=== PATIENT | female | born 1965 | race Caucasian/White ===

== ENCOUNTER → 2016-12-19 | Outpatient (CLI) | payer OTHER ==
--- NOTE | 2016-12-30 07:50 | MM ---
Reason for exam: screening (asymptomatic). Last mammogram was performed 11 years and 9 months ago. History: Patient history of other cancer. Took hormonal contraceptives for 3 years beginning at age 18. Physical Findings: A clinical breast exam by your physician is recommended on an annual basis and results should be correlated with mammographic findings. MG Screening Mammo w CAD Bilateral CC and MLO view(s) were taken. Prior study comparison: October 11, 2015, mammogram, performed at [facility]. March 21, 2005, bilateral screening mammogram w/CAD. The breast tissue is almost entirely fat. There is no discrete abnormality. No significant changes when compared with prior studies. ASSESSMENT: Negative, BI-RAD 1 RECOMMENDATION: Routine screening mammogram of both breasts in 1 year.
== END ==
LOC: RADMAMWWP 14:11
PROVIDERS: ATTEND Family Medicine
DX: Z12.31 Encounter for screening mammogram for malignant neoplasm of breast (principal)

== ENCOUNTER 2017-07-13 08:31 | Inpatient (IN) | payer OTHER ==
[2017-07-13] MEDS ORDERED: methylPREDNISolone SOD SUCCI 125 MG/2 ML VIAL IV STA (08:54)
[2017-07-13] MEDS ORDERED: SODIUM CHLORIDE 0.9% 1,000 ML IV STA (08:54)
[2017-07-13] MEDS ORDERED: IPRATROPIUM-ALBUTEROL 3 ML NEB INHALATION STA ×2 (08:54→10:57)
[2017-07-13 09:18] LABS: Basophils # (A) 0.1 k/uL (0-0.2); Basophils % (A) 1 %; Eosinophils # (A) 0.2 k/uL (0-0.7); Eosinophils % (A) 2 %; HGB 15.3 gm/dL (11.4-16.0); Lymphocytes % (A) 21 %; MCH 30.2 pg (25.0-35.0); MCHC 33.3 g/dL (31.0-37.0); MCV 90.6 fL (80.0-100.0); Mean Platelet Volume 7.2; Monocytes # (A) 0.4 k/uL (0-1.0); Monocytes % (A) 4 %; Neutrophils % (A) 71 %; Platelet Count 327 k/uL (150-450); RBC 5.08 m/uL (3.80-5.40); RDW 13.1 % (11.5-15.5); WBC 9.9 k/uL (3.8-10.6)
--- NOTE | 2017-07-13 09:24 | XR ---
EXAMINATION TYPE: XR chest 2V DATE OF EXAM: 07/13/2017 COMPARISON: NONE HISTORY: Dyspnea. History of COPD. TECHNIQUE: Frontal and lateral views of the chest are obtained. FINDINGS: There is no focal air space opacity, pleural effusion, or pneumothorax seen. The cardiac silhouette size is within normal limits. The osseous structures are intact. Minimal multilevel dege nerative changes of the thoracic spine are noted. IMPRESSION: No acute cardiopulmonary process.
[2017-07-13 09:27] LABS: D-Dimer 0.55 mg/L FEU (<0.60)
[2017-07-13 09:30] LABS: ALT 40 U/L (9-52); AST 23 U/L (14-36); Albumin 4.3 g/dL (3.5-5.0); Alkaline Phosphatase 80 U/L (38-126); Anion Gap 11 mmol/L; Blood Urea Nitrogen 15 mg/dL (7-17); Carbon Dioxide 29 mmol/L (22-30); Chloride 104 mmol/L (98-107); Glucose 143 mg/dL (74-99); Potassium 3.6 mmol/L (3.5-5.1); Sodium 144 mmol/L (137-145); Total Bilirubin 0.5 mg/dL (0.2-1.3); Total Protein 7.3 g/dL (6.3-8.2)
[2017-07-13 09:32] LABS: Partial Thromboplastin Time 25.4 sec (22.0-30.0); Prothrombin Time 9.7 sec (9.0-12.0)
[2017-07-13 09:46] LABS: Calcium 9.9 mg/dL (8.4-10.2)
[2017-07-13] MEDS ORDERED: PROMETHAZ-COD 6.25-10 MG/5 ML 5 ML CUP PO STA (09:46)
[2017-07-13 09:48] LABS: Creatine Kinase 73 U/L (30-135)
--- NOTE | 2017-07-13 09:49 | ED ---
General Adult HPI - General Chief complaint: Shortness of Breath Stated complaint: SOB Time Seen by Provider: 07/13/17 08:40 Source: patient, RN notes reviewed, old records reviewed Mode of arrival: ambulatory Limitations: no limitations - History of Present Illness Initial comments: This patient is a 52-year-old female with a history of COPD presents emergency Department chief complaint of shortness of breath. Patient reports that she's had these symptoms for the past 3 weeks. She reports initially started to get L and followed up with her primary care provider. She was started on Augmentin for 10 days for upper respiratory infection. She was on any steroids at that time, she has been using her inhalers. Patient reports that she started to feel somewhat better after the antibiotics. She reports that the symptoms started to recur about a week ago. Patient states that she has been feeling chilled, and intermittent fevers. She denies any specific chest pain. She states that she's had no nausea or vomiting, abdominal pain. - Related Data Home Medications Medication Instructions Recorded Confirmed Albuterol Inhaler [Ventolin Hfa 2 puff INHALATION RT-BID 07/13/17 07/13/17 Inhaler] Albuterol Nebulized [Ventolin 2.5 mg INHALATION RT-Q4H 07/13/17 07/13/17 Nebulized] Calcium Carbonate [Tums] 1,000 mg PO BID 07/13/17 07/13/17 Ergocalciferol [Vitamin D2] 50,000 unit PO Q30D 07/13/17 07/13/17 Flunisolide [Aerospan] 1 puff INHALATION RT-DAILY 07/13/17 07/13/17 HYDROcodone/APAP 7.5-325MG [Coalgate 1 tab PO BID PRN 07/13/17 07/13/17 7.5-325] Hydrochlorothiazide [Hydrodiuril] 25 mg PO DAILY 07/13/17 07/13/17 Loratadine [Claritin] 10 mg PO DAILY 07/13/17 07/13/17 Montelukast [Singulair] 10 mg PO DAILY 07/13/17 07/13/17 Umeclidinium [place] [Incruse 1 puff INHALATION RT-DAILY 07/13/17 07/13/17 Ellipta] Allergies Allergy/AdvReac Type Severity Reaction Status Date / Time No Known Allergies Allergy Verified 07/13/17 08:56 Review of Systems ROS Statement: Those systems with pertinent positive or pertinent negative responses have been documented in the HPI. ROS Other: All systems not noted in ROS Statement are negative. Past Medical History Past Medical History: Asthma, COPD, Hypertension Additional Past Medical History / Comment(s): DDD History of Any Multi-Drug Resistant Organisms: None Reported Past Surgical History: No Surgical Hx Reported Past Psychological History: No Psychological Hx Reported Smoking Status: Former smoker Past Alcohol Use History: None Reported Past Drug Use History: None Reported General Exam - General Exam Comments Initial Comments: This patient is a 52-year-old female, patient is diaphoretic. Limitations: no limitations General appearance: alert, in no apparent distress Head exam: Present: atraumatic, normocephalic, normal inspection Eye exam: Present: normal appearance, PERRL, EOMI. Absent: scleral icterus, conjunctival injection, periorbital swelling ENT exam: Present: normal exam, mucous membranes moist Neck exam: Present: normal inspection. Absent: tenderness, meningismus, lymphadenopathy Respiratory exam: Present: normal lung sounds bilaterally, wheezes (Minor wheezing is noted bilaterally.). Absent: respiratory distress, rales, rhonchi, stridor Cardiovascular Exam: Present: regular rate GI/Abdominal exam: Present: soft, other (Obese abdomen.) Extremities exam: Present: normal inspection, full ROM, normal capillary refill , other. Absent: tenderness, pedal edema, joint swelling, calf tenderness Back exam: Present: normal inspection Neurological exam: Present: alert, oriented X3, CN II-XII intact Psychiatric exam: Present: normal affect Skin exam: Present: warm, dry, intact, normal color. Absent: rash Course Vital Signs 07/13/17 07/13/17 07/13/17 08:33 08:42 09:25 Temperature 98.0 F Pulse Rate 118 H 76 Respiratory 20 24 22 Rate Blood Pressure 138/83 113/79 O2 Sat by Pulse 96 94 L Oximetry 07/13/17 07/13/17 07/13/17 09:30 09:38 10:50 Temperature Pulse Rate 88 81 Respiratory Rate Blood Pressure O2 Sat by Pulse 90 L Oximetry 07/13/17 07/13/17 07/13/17 11:15 11:18 11:26 Temperature Pulse Rate 78 81 81 Respiratory 20 Rate Blood Pressure 116/54 O2 Sat by Pulse 96 Oximetry - Reevaluation(s) Reevaluation #1: 07/13/17 11:13 Patient is reevaluated after the breathing treatment, oxygen was pulled off the patient's O2 sat was 90% on room air. Patient was replaced back on oxygen. Only getting up to 94% on room air on 2 L of oxygen. She does still have some minor wheezing. We'll repeat DuoNeb. She reports that she's been using albuterol breathing treatments every 4 hours but not getting any better. EKG Findings - EKG Comments: EKG Findings:: EKG shows sinus rhythm, ventricular 83 beats were minute period. 178 ms. QRS duration 96 most seconds. QT QTC 396/465 mg seconds. No evidence of ST elevation or T-wave inversions. No evidence of facial or ventricular arrhythmias. Medical Decision Making - Medical Decision Making 52-year-old female chief complaint of increased cough and shortness of breath. Patient was given IV fluids, IV steroids, and DuoNeb treatment. Chest x-ray was reviewed and negative for any significant acute process. She continues to have some upper respiratory congestion and coughing and minor wheezing noted. Patient's labwork was reviewed and within normal limits. EKG was reviewed and normal. Patient continues to have a productive cough, and oxygen saturation dips to 90% when she is off of room air. At this time I discussed case with We'll repeat another DuoNeb treatment. At this time on the patient for COPD exacerbation. Started on IV steroids. I'll start the patient on PO Levaquin. Patient agrees to treatment plan will comply. Discussed Dr. Lawton. He discussed this with Dr. Hernandez. - Lab Data Result diagrams: 07/13/17 09:04 07/13/17 09:04 Lab Results 07/13/17 07/13/17 07/13/17 Range/Units 09:04 09:04 09:04 WBC 9.9 (3.8-10.6) k/uL RBC 5.08 (3.80-5.40) m/uL Hgb 15.3 (11.4-16.0) gm/dL Hct 46.0 (34.0-46.0) % MCV 90.6 (80.0-100.0) fL MCH 30.2 (25.0-35.0) pg MCHC 33.3 (31.0-37.0) g/dL RDW 13.1 (11.5-15.5) % Plt Count 327 (150-450) k/uL Neutrophils % 71 % Lymphocytes % 21 % Monocytes % 4 % Eosinophils % 2 % Basophils % 1 % Neutrophils # 7.0 (1.3-7.7) k/uL Lymphocytes # 2.0 (1.0-4.8) k/uL Monocytes # 0.4 (0-1.0) k/uL Eosinophils # 0.2 (0-0.7) k/uL Basophils # 0.1 (0-0.2) k/uL PT (9.0-12.0) sec INR (<1.2) APTT (22.0-30.0) sec D-Dimer (<0.60) mg/L FEU Sodium 144 (137-145) mmol/L Potassium 3.6 (3.5-5.1) mmol/L Chloride 104 (98-107) mmol/L Carbon Dioxide 29 (22-30) mmol/L Anion Gap 11 mmol/L BUN 15 (7-17) mg/dL Creatinine 0.67 (0.52-1.04) mg/dL Est GFR (MDRD) Af Amer >60 (>60 ml/min/1.73 sqM) Est GFR (MDRD) Non-Af >60 (>60 ml/min/1.73 sqM) Glucose 143 H (74-99) mg/dL Calcium 9.9 (8.4-10.2) mg/dL Total Bilirubin 0.5 (0.2-1.3) mg/dL AST 23 (14-36) U/L ALT 40 (9-52) U/L Alkaline Phosphatase 80 (38-126) U/L Total Creatine Kinase 73 (30-135) U/L CK-MB (CK-2) 0.6 (0.0-2.4) ng/mL CK-MB (CK-2) Rel Index 0.8 Troponin I <0.012 (0.000-0.034) ng/mL NT-Pro-B Natriuret Pep pg/mL Total Protein 7.3 (6.3-8.2) g/dL Albumin 4.3 (3.5-5.0) g/dL 07/13/17 07/13/17 Range/Units 09:04 09:04 WBC (3.8-10.6) k/uL RBC (3.80-5.40) m/uL Hgb (11.4-16.0) gm/dL Hct (34.0-46.0) % MCV (80.0-100.0) fL MCH (25.0-35.0) pg MCHC (31.0-37.0) g/dL RDW (11.5-15.5) % Plt Count (150-450) k/uL Neutrophils % % Lymphocytes % % Monocytes % % Eosinophils % % Basophils % % Neutrophils # (1.3-7.7) k/uL Lymphocytes # (1.0-4.8) k/uL Monocytes # (0-1.0) k/uL Eosinophils # (0-0.7) k/uL Basophils # (0-0.2) k/uL PT 9.7 (9.0-12.0) sec INR 1.0 (<1.2) APTT 25.4 (22.0-30.0) sec D-Dimer 0.55 (<0.60) mg/L FEU Sodium (137-145) mmol/L Potassium (3.5-5.1) mmol/L Chloride (98-107) mmol/L Carbon Dioxide (22-30) mmol/L Anion Gap mmol/L BUN (7-17) mg/dL Creatinine (0.52-1.04) mg/dL Est GFR (MDRD) Af Amer (>60 ml/min/1.73 sqM) Est GFR (MDRD) Non-Af (>60 ml/min/1.73 sqM) Glucose (74-99) mg/dL Calcium (8.4-10.2) mg/dL Total Bilirubin (0.2-1.3) mg/dL AST (14-36) U/L ALT (9-52) U/L Alkaline Phosphatase (38-126) U/L Total Creatine Kinase (30-135) U/L CK-MB (CK-2) (0.0-2.4) ng/mL CK-MB (CK-2) Rel Index Troponin I (0.000-0.034) ng/mL NT-Pro-B Natriuret Pep 28 pg/mL Total Protein (6.3-8.2) g/dL Albumin (3.5-5.0) g/dL - Radiology Data Radiology results: report reviewed Chest x-rays negative for any acute cardiopulmonary process. Disposition Clinical Impression: COPD exacerbation Disposition: ADMITTED IP TO THIS HOSP Condition: Good Referrals: Noah Hernandez MD [Primary Care Provider] - 1-2 days Time of Disposition: 11:34
[2017-07-13 10:00] LABS: Creatine Kinase MB 0.6 ng/mL (0.0-2.4); Troponin I <0.012 ng/mL (0.000-0.034)
[2017-07-13] MEDS ORDERED: IPRATROPIUM 0.5 MG/2.5 ML NEBU INHALATION SCH (12:00)
[2017-07-13] MEDS: HYDROcodone/APAP 7.5-325MG 1 EACH TAB PO PRN (13:45)
[2017-07-13] MEDS: CALCIUM CARBONATE 500 MG CHEWABLE PO SCH (13:48)
[2017-07-13] MEDS: IPRATROPIUM-ALBUTEROL 3 ML NEB INHALATION SCH ×2 (15:13→19:20)
[2017-07-13] MEDS: BENZONATATE 100 MG CAP PO SCH ×2 (15:32→22:02)
[2017-07-13] MEDS ORDERED: ALBUTEROL NEBULIZED 2.5 MG/3 ML INHALATION SCH ×2 (16:00→20:00)
[2017-07-13] MEDS: methylPREDNISolone SOD SUCCI 125 MG/2 ML VIAL IV SCH ×2 (18:35→20:26)
[2017-07-13] MEDS ORDERED: BUDESONIDE 0.5 MG/2 ML NEBU INHALATION SCH (20:00)
[2017-07-13] MEDS: guaiFENesin 600 MG TABLET.ER PO SCH (20:26)
[2017-07-14] MEDS: methylPREDNISolone SOD SUCCI 125 MG/2 ML VIAL IV SCH ×2 (00:49→06:46)
[2017-07-14] MEDS: BUDESONIDE 0.5 MG/2 ML NEBU INHALATION SCH ×2 (07:00→19:53)
[2017-07-14] MEDS: IPRATROPIUM-ALBUTEROL 3 ML NEB INHALATION SCH ×4 (07:00→19:53)
[2017-07-14] MEDS ORDERED: BUDESONIDE 0.5 MG/2 ML NEBU INHALATION SCH (07:01)
[2017-07-14] MEDS: CALCIUM CARBONATE 500 MG CHEWABLE PO SCH ×2 (08:17→22:09)
[2017-07-14] MEDS: LEVOFLOXACIN 500 MG TAB PO SCH (08:17)
[2017-07-14] MEDS: LORATADINE 10 MG TAB PO SCH (08:17)
[2017-07-14] MEDS: BENZONATATE 100 MG CAP PO SCH ×3 (08:18→22:08)
[2017-07-14] MEDS: guaiFENesin 600 MG TABLET.ER PO SCH ×2 (08:18→22:09)
[2017-07-14] MEDS: HYDROCHLOROTHIAZIDE 25 MG TAB PO SCH (08:18)
[2017-07-14] MEDS: HYDROcodone/APAP 7.5-325MG 1 EACH TAB PO PRN ×2 (08:21→22:09)
[2017-07-14] MEDS: predniSONE 20 MG TAB PO SCH ×3 (12:39→22:09)
[2017-07-14] MEDS: MONTELUKAST 10 MG TAB PO SCH (12:39)
[2017-07-14] MEDS ORDERED: ACETAMINOPHEN TAB 325 MG TAB PO PRN (13:46)
--- NOTE | 2017-07-15 05:26 | HP ---
HISTORY AND PHYSICAL CHIEF COMPLAINT: Difficulty breathing. HISTORY OF PRESENT ILLNESS: This is another admission for this 52-year-old obese white female who has asthma and COPD. She started having difficulty, which advanced very quickly and she came to emergency room where she could not be improved upon, she was admitted. She has a negative D-dimer. She had no purulent sputum production, hemoptysis, etc. REVIEW OF SYSTEMS: She has had no neurologic problems, change in vision or hearing, chest pain, heart disease, murmurs, rheumatic fever, etc. She does have essential hypertension. She has never had angina or CHF. She has had no abdominal pain, vomiting, diarrhea, melena, hematochezia, jaundice, renal failure, etc. Past medical history, family history, and personal and social histories reveal she is not allergic to any medication and she is on: 1. Vicodin 7.5 twice a day p.r.n. 2. Ellipta 62.5 one puff once a day. 3. Hydrochlorothiazide 25 mg once a day. 4. CPAP device. 5. Symbicort 160/4.5 two puffs twice a day. 6. Vitamin D. 7. Ventolin HFA. 8. Aerospan 80 mcg 1 puff once a day. 9. Singulair 10 mg once a day. 10.Loratadine 10 mg once a day. 11.Verapamil ER 240 mg once a day. Past medical history is otherwise unremarkable and noncontributory. She is a hepatitis C carrier, but has negative RNA. She used to smoke, but she has quit. She does not drink. PHYSICAL EXAM: Blood pressure 150/80 with a pulse of 90, respirations of 46 and she is afebrile. In general, she appeared to be obese and in respiratory distress. Face was flushed. Head, ears, eyes, nose, mouth, and throat were normal. Chest demonstrated very poor breath sounds with wheezing and rales bilaterally and prolonged expiratory phase. Cardiac exam demonstrates sinus tachycardia with no murmurs or extra sounds. The abdomen is protuberant soft, nontender. EXTREMITIES: Normal. Neurologically, she is intact. She is admitted to the hospital with diagnoses: 1. Exacerbation of chronic obstructive pulmonary disease. 2. Hypertension. 3. Obesity. 4. Reactive airway disease. PLAN: 1. Bed rest. 2. IV fluids. 3. IV and inhaled steroids. 4. Updrafts. MMODL / IJN: [id number] /
--- NOTE | 2017-07-15 06:20 | PN ---
PROGRESS NOTE DATE OF SERVICE: 07/14/2017 CHIEF COMPLAINTS: Reactive airway disease and exacerbation of COPD. HISTORY OF PRESENT ILLNESS: This lady is still very dyspneic and wheezy. She is still short of breath. She is afebrile. PHYSICAL EXAM: Breath sounds are poor. There is still scattered rales and inspiratory and expiratory wheezing. The cardiac exam is normal. Abdomen is soft. IMPRESSION: 1. Exacerbation of chronic obstructive pulmonary disease. 2. Reactive airway disease. 3. Hypertension. 4. Obesity. PLAN: Continue current program and we will switch her over to oral medications since she has lost her IV. MMODL / IJN: [id number] /
[2017-07-15] MEDS: CALCIUM CARBONATE 500 MG CHEWABLE PO SCH (08:50)
[2017-07-15] MEDS: BENZONATATE 100 MG CAP PO SCH (08:50)
[2017-07-15] MEDS: MONTELUKAST 10 MG TAB PO SCH (08:51)
[2017-07-15] MEDS: LORATADINE 10 MG TAB PO SCH (08:51)
[2017-07-15] MEDS: predniSONE 20 MG TAB PO SCH (08:51)
[2017-07-15] MEDS: HYDROCHLOROTHIAZIDE 25 MG TAB PO SCH (08:51)
[2017-07-15] MEDS: guaiFENesin 600 MG TABLET.ER PO SCH (08:51)
[2017-07-15] MEDS: LEVOFLOXACIN 500 MG TAB PO SCH (08:51)
[2017-07-15 08:55] VITALS: RESP 20
[2017-07-15] MEDS: HYDROcodone/APAP 7.5-325MG 1 EACH TAB PO PRN (08:57)
[2017-07-15] MEDS: BUDESONIDE 0.5 MG/2 ML NEBU INHALATION SCH (09:04)
[2017-07-15] MEDS: IPRATROPIUM-ALBUTEROL 3 ML NEB INHALATION SCH ×2 (09:04→12:38)
--- NOTE | 2017-07-15 09:25 | CDI ---
Last Revision, June 2017 Documentation Clarification Form Date: 07/15/2017 9:15:00 AM From: Lety Green RN, CCDS Admit Date: 07/13/2017 12:12:00 PM Patient Name: Dyana Borges Visit Number: [id number] ATTENTION: The Clinical Documentation Specialists (CDI) and [facility] Coding Staff appreciate your assistance in clarifying documentation. Please respond to the clarification below the line at the bottom and electronically sign. The CDI & [facility] Coding staff will review the response and follow-up if needed. Please note: Queries are made part of the Legal Health Record. If you have any questions, please contact the author of this message via ITS. Dr. Noah Hernandez Reactive airway disease is documented in the H&P and Progress Notes and requires further specificity. Patient history/risk factors: Hep C carrier, Ex-smoker, COPD Clinical Indicators: CXR: negative Vital Signs: Temp 98, HR 118, RR 20, B/P 138/83, Spo2 96% ra Treatment: Medication: Duoneb QID, Pulmicort BID, Solumedrol 125 mg IVP with tapering dose , IVF Bolus, Claritin 10 mg PO QD, Singular 10 mo PO QD, Prednisone 20 mg PO QID Consults: none ordered In your professional opinion, can you please further specify the following, if known? With: Acute Exacerbation Status asthmaticus Acute lower respiratory infection COPD (specify with or without exacerbation) Chronic obstructive bronchitis Other, please specify ___ Unable to determine Severity: Mild intermittent Mild persistent Moderate persistent Severe persistent Other, please specify ____ Unable to determine Form or Type: Cough variant Childhood Exercise induced bronchospasm Extrinsic allergic Idiosyncratic Intrinsic nonallergic Late-onset Mixed Other, please specify____ Unable to determine Please continue to document in your progress notes and discharge summary in order to capture severity of illness and risk of mortality. Include clinical findings that support your diagnosis. MTDD
--- NOTE | 2017-07-15 12:03 | MISC ---
MISCELLANOUS REPORT Query First Question: In your professional opinion, can you please further specify the following, in known: With: Acute exacerbation. Severity: Severe persistent. Form or Type: Mixed. MMODL / IJN: [id number] /
[2017-07-15 12:27] VITALS: BP 126/78; TEMP 97.6
--- NOTE | 2017-07-15 12:51 | DS ---
DISCHARGE SUMMARY CHIEF COMPLAINT: Difficulty breathing. HISTORY OF PRESENT ILLNESS AND PHYSICAL EXAM: Details of this lady's history and physical can be found in the initial workup. LABORATORY STUDIES: While she was in a hospital she had laboratory studies, details which can be found in the laboratory section of her chart. COURSE IN HOSPITAL: After admission, she was placed on bedrest, started on intravenous fluids, IV and inhaled steroids, updrafts and antibiotics. Her bronchospasm and shortness of breath persisted for 48 hours and then she began to clear. She is doing well enough on the morning of the that it was felt that she could go home and she will go home on her usual activity, diet, medication along with Medrol Dosepak and Levaquin 500 mg once a day. She will be seen in the office in 1 or 2 days. FINAL DIAGNOSES: 1. Acute respiratory failure. 2. Exacerbation of chronic obstructive pulmonary disease. 3. Reactive airway disease with chronic persistent asthma. 4. obesity. OPERATIONS: None. CONSULTATION: None She is improved. MMMALLYL / IJN: [id number] /
[2017-07-15 13:03] VITALS: PULSE 96
== END 2017-07-15 12:57 | disposition home or self-care (01) | DRG 190 ==
LOC: EC 08:31 → 5MS5E 12:12 → 6PED 12:31
PROVIDERS: ADMIT Family Medicine; ATTEND Family Medicine
DX: J44.1 Chronic obstructive pulmonary disease with (acute) exacerbation (principal); J96.00 Acute respiratory failure, unspecified whether with hypoxia or hypercapnia; J45.51 Severe persistent asthma with (acute) exacerbation; Z68.44 Body mass index [BMI] 60.0-69.9, adult; J44.0 Chronic obstructive pulmonary disease with (acute) lower respiratory infection; E66.9 Obesity, unspecified; I10 Essential (primary) hypertension; B18.2 Chronic viral hepatitis C; Z87.891 Personal history of nicotine dependence; Z79.899 Other long term (current) drug therapy
CPT/HCPCS: 36415; 71046; 80053; 82550; 82553; 83880; 84484; 85025; 85379; 85610; 85730; 87040; 93005; 94640; 94660; 94760; 96361; 96374; 99285